=== PATIENT | female | born 1990 | race Caucasian/White ===

== ENCOUNTER 2019-02-07 22:59 | Inpatient (IN) | payer OTHER ==
[2019-02-07 23:06] VITALS: BMI 24.4
[2019-02-07] MEDS ORDERED: ACETAMINOPHEN 500 MG TABLET (FP) PO ONE (23:37)
--- NOTE | 2019-02-07 23:37 | PDOC ---
History of Present Illness - General Chief Complaint: Pain, Acute Stated Complaint: LEFT KNEE PAIN Time Seen by Provider: 02/07/19 23:28 - History of Present Illness Initial Comments: 02/07/19 23:34 CHIEF COMPLAINT: L knee pain HISTORY OF PRESENT ILLNESS: 28 yo F with no PMH presents to ED with left leg pain and swelling x 2 days . Patient reports the pain began two days ago but the swelling began today and she was no longer able to bend her knee or walk. Denies any fever, chills, nausea, vomiting, diarrhea. Denies any hx of STIs, denies any recent trauma or injury to the knee. Patient denies any recent skin injury including lacerations, abrasions, or any insect bites. Denies any outdoor activity including travel or hiking. No recent travel or sick contacts. PAST MEDICAL HISTORY: Denies past medical history FAMILY HISTORY: Denies SOCIAL HISTORY: Denies tobacco, alcohol, illicit drug use. SURGICAL HISTORY: Denies ALLERGIES: No known drug allergies REVIEW OF SYSTEMS General/Constitutional: Denies fever or chills. Denies weakness, weight change. HEENT: Denies change in vision. Denies ear pain or discharge. Denies sore throat. Cardiovascular: Denies chest pain or shortness of breath. Respiratory: Denies cough, wheezing, or hemoptysis. Gastrointestinal: Denies nausea, vomiting, diarrhea or constipation. Denies rectal bleeding. Genitourinary: Denies dysuria, frequency, or change in urination. Musculoskeletal: L knee pain and swelling x 2 days, worse today. Skin and breasts: Denies rash or easy bruising. Neurologic: Denies headache, vertigo, loss of consciousness, or loss of sensation. Psychiatric: Denies depression or anxiety. Endocrine: Denies increased thirst. Denies abnormal weight change. Hematologic/Lymphatic: Denies anemia, easy bleeding, or history of blood clots. Allergic/Immunologic: Denies hives or skin allergy. Denies latex allergy. PHYSICAL EXAM General Appearance: Well-appearing, appropriately dressed. No apparent distress , no intoxication. HEENT: EOMI, PERRLA, normal ENT inspection, normal voice, TMs normal, pharynx normal. No conjunctival pallor. No photophobia, scleral icterus. Neck: Supple. Trachea midline. No tenderness, rigidity, carotid bruit, stridor , lymphadenopathy, or thyromegaly. Respiratory/Chest: Lungs CTAB. No shortness of breath, chest tenderness, respiratory distress, accessory muscle use. No crackles, rales, rhonchi, stridor , wheezing, dullness Cardiovascular: RRR. S1, S2. No JVD, murmur, bradycardia, tachycardia. Vascular Pulses: Dorsalis-Pedis (R): 2+, Dorsalis-Pedis (L): 2+ Gastrointestinal/Abdominal: Normal bowel sounds. Abdomen soft, non-distended. No tenderness or rebound tenderness. No organomegaly, pulsatile mass, guarding , hernia, hepatomegaly, splenomegaly. Lymphatic: No adenopathy, tenderness. Musculoskeletal/Extremities: Swelling to superior anterior aspect of L knee with warmth and TTP. Markedly decreased flexion to L knee. Normal inspection. FROM of all extremities, normal capillary refill. Pelvis Stable. No CVA tenderness. No tenderness to extremities, pedal edema, swelling, erythema or deformity. Integumentary: Appropriate color, dry, warm. No cyanosis, erythema, jaundice or rash Neurologic: knife setter II-XII intact. Fully oriented, alert. Appropriate mood/affect. Motor strength 5/5. No appreciable EOM palsy, facial droop or sensory deficit. 02/08/19 00:29 Past History - Past Medical History Allergies/Adverse Reactions: Allergies Allergy/AdvReac Type Severity Reaction Status Date / Time No Known Allergies Allergy Verified 02/08/19 01:21 Home Medications: Ambulatory Orders Ondansetron [Zofran -] 4 mg PO TID PRN #21 tablet 11/29/15 Oxycodone HCl/Acetaminophen [Percocet 5-325 mg Tablet] 1 tab PO Q6H PRN #16 tablet MDD 4 tabs 11/29/15 Norethindrone 1 tab PO DAILY 02/08/19 Ibuprofen [Motrin -] 600 mg PO TID #21 tablet 02/09/19 COPD: No - Suicide/Smoking/Psychosocial Hx Smoking History: Never smoked Hx Alcohol Use: No Drug/Substance Use Hx: No Substance Use Type: None *Physical Exam - Vital Signs Last Vital Signs Temp Pulse Resp BP Pulse Ox 99.6 F 108 H 18 134/48 L 99 02/07/19 23:05 02/07/19 23:05 02/07/19 23:05 02/07/19 23:05 02/07/19 23:05 ED Treatment Course - LABORATORY CBC & Chemistry Diagram: 02/09/19 06:10 02/09/19 06:10 Medical Decision Making - Medical Decision Making 02/07/19 23:36 28 yo F with no PMH presents to ED with left leg pain and swelling x 2 days . -labs -knee x-ray Concern for septic joint. Verbal consent obtained for joint aspiration. Synovial fluid sample sent for cultures. Will obtain urine to test for Ct/GC. 02/08/19 02:51 Case discussed in detail with oncoming emergency provider including history, physical exam and ancillary studies. In brief, this patient is being seen in the ED for a chief complaint of: I have completed the initial assessment interview note and have ordered the following labs: synovial fluid, ct/gc Please call the PCP: Mary Grace Deal Plan for disposition as follows: pending *DC/Admit/Observation/Transfer Diagnosis at time of Disposition: Knee effusion, left, Infection of left knee - Discharge Dispostion Disposition: HOME Condition at time of disposition: Stable - Referrals - Patient Instructions - Post Discharge Activity
[2019-02-08] MEDS ORDERED: ACETAMINOPHEN 325 MG TABLET (FP) ONE
[2019-02-08 00:30] LABS: BASO % 0.7 % (0-2.0); EOS % 1.6 % (0-4.5); HEMATOCRIT 36.6 % (32.4-45.2); HEMOGLOBIN 11.7 GM/dL (10.7-15.3); LYMPH % 16.1 % (8-40); MCH 21.5 pg (25.7-33.7); MCHC 31.9 g/dl (32.0-36.0); MEAN CELL VOLUME 67.4 fl (80-96); MEAN PLT VOLUME 8.9 fl (7.5-11.1); MONO % 5.4 % (3.8-10.2); NEUT % 76.2 % (42.8-82.8); PLATELET COUNT 264 K/MM3 (134-434); RBC 5.43 M/mm3 (3.60-5.2); RDW 19.2 % (11.6-15.6); WHITE BLOOD COUNT 11.7 K/mm3 (4.0-10.0)
[2019-02-08 01:08] LABS: ALBUMIN 3.7 g/dl (3.4-5.0); BILIRUBIN,TOTAL 0.4 mg/dL (0.2-1); BLOOD UREA NITROGEN 9.6 mg/dL (7-18); CALCIUM 8.6 mg/dL (8.5-10.1); CREATININE 0.6 mg/dL (0.55-1.3); POTASSIUM 4.2 mmol/L (3.5-5.1); TOT PROT 7.5 g/dl (6.4-8.2)
[2019-02-08 01:45] LABS: INR 1.04 (0.83-1.09); PROTHROMBIN TIME (PATIENT) 12.3 SEC (9.7-13.0)
[2019-02-08 01:48] LABS: ACTIVATED PTT 30.9 SECONDS (25.2-36.5)
[2019-02-08] MEDS ORDERED: LIDOCAINE HCL 2% (20ML MULTI-DOSE VIAL) NR ONE (01:51)
[2019-02-08] MEDS ORDERED: LIDOCAINE HCL 2% (50ML VIAL) SQ ONE (01:51)
[2019-02-08 03:49] LABS: URINE APPEARANCE CLEAR; URINE BILIRUBIN NEGATIVE (NEGATIVE); URINE COLOR YELLOW; URINE GLUCOSE (UA) NEGATIVE (NEGATIVE); URINE KETONE NEGATIVE (NEGATIVE); URINE LEUK ESTERASE NEGATIVE (NEGATIVE); URINE NITRITE NEGATIVE (NEGATIVE); URINE PROTEIN NEGATIVE (NEGATIVE)
--- NOTE | 2019-02-08 04:28 | PDOC ---
*Physical Exam - Vital Signs Last Vital Signs Temp Pulse Resp BP Pulse Ox 99.6 F 108 H 18 134/48 L 99 02/07/19 23:05 02/07/19 23:05 02/07/19 23:05 02/07/19 23:05 02/07/19 23:05 - Physical Exam Comments: 02/08/19 04:21 Patient's care was endorsed to me by Isabella Guerra at the end of her shift. Patient has left knee pain for the past 2 days, worsening, 04/11, also swelling to the superior/anterior knee, and she is unable to walk or bear weight or bend the knee past 10 degrees. Never had this before, no c/f STI, no skin breaks recently. ED Treatment Course - LABORATORY CBC & Chemistry Diagram: 02/08/19 00:21 02/08/19 00:21 - ADDITIONAL ORDERS Additional order review: Laboratory Results 02/08/19 02/08/19 02/08/19 03:33 00:34 00:21 PT with INR 12.30 INR 1.04 PTT (Actin FS) 30.9 Sodium 140 Potassium 4.2 Chloride 108 H Carbon Dioxide 25 Anion Gap 7 L BUN 9.6 Creatinine 0.6 Est GFR (CKD-EPI)AfAm 142.76 Est GFR (CKD-EPI)NonAf 123.17 Random Glucose 102 Calcium 8.6 Total Bilirubin 0.4 AST 13 L ALT 17 Alkaline Phosphatase 72 Total Protein 7.5 Albumin 3.7 Urine Color Yellow Urine Appearance Clear Urine pH 6.0 Ur Specific [place] 1.026 Urine Protein Negative Urine Glucose (UA) Negative Urine Ketones Negative Urine Blood Negative Urine Nitrite Negative Urine Bilirubin Negative Urine Urobilinogen 1.0 Ur Leukocyte Esterase Negative 02/08/19 00:21 RBC 5.43 H MCV 67.4 L MCHC 31.9 L RDW 19.2 H MPV 8.9 Neutrophils % 76.2 Lymphocytes % 16.1 Monocytes % 5.4 Eosinophils % 1.6 Basophils % 0.7 - Medications Given in the ED: ED Medications Discontinued Medications Generic Name Dose Route Start Last Admin Trade Name Freq PRN Reason Stop Dose Admin Acetaminophen 1,000 mg 02/07/19 23:37 02/08/19 00:04 Tylenol - PO 02/07/19 23:38 1,000 mg ONCE ONE Administration Lidocaine HCl 10 mg 02/08/19 01:51 02/08/19 01:56 Xylocaine 2% SQ 02/08/19 01:52 10 mg ONCE ONE Administration Oxycodone/Acetaminophen 1 combo 02/08/19 02:37 02/08/19 02:58 Percocet 5/325 - PO 02/08/19 02:38 1 combo ONCE ONE Administration Medical Decision Making - Medical Decision Making 02/08/19 04:28 The patient is unable to walk, bear weight, or bend her knee despite analgesics. IV vancomycin and ceftriaxone have been ordered. Blood cultures added on to be drawn before IV antibiotics given. The Pt is unsafe for discharge at this time. They require further hospital observation, workup, and treatment. Microblog sent to [facility] for admission. Blank Decision to Admit order is placed per ED protocol. 02/08/19 05:04 I spoke with Ciera Rios, on with [facility]. Blank Decision to Admit order corrected with Dr. Cabral's name. *DC/Admit/Observation/Transfer Diagnosis at time of Disposition: Knee effusion, left, Infection of left knee - Discharge Dispostion Condition at time of disposition: Guarded Decision to Admit order: Yes - Referrals Referrals: Mary Grace Deal MD [Primary Care Provider] - - Patient Instructions - Post Discharge Activity
[2019-02-08] MEDS ORDERED: CEFTRIAXONE 1,000 MG in DEXTROSE 5%-WATER - 50 ML IVPB ONE (05:06)
[2019-02-08] MEDS ORDERED: VANCOMYCIN 1 GM in D5W (PRE-DOCKED) 1,000 MG/250 ML IVPB ONE (05:06)
[2019-02-08] MEDS ORDERED: VANCOMYCIN 1 GRAM (PRE-DOCKED) 1,000 MG/250 ML BAG IVPB ONE (05:08)
[2019-02-08] MEDS ORDERED: CEFTRIAXONE 1 GM/50 ML BAG ONE (05:10)
[2019-02-08] MEDS ORDERED: ACETAMINOPHEN 325 MG TABLET (FP) PO PRN (05:44)
--- NOTE | 2019-02-08 05:52 | HP ---
CHIEF COMPLAINT: L knee pain PCP: HISTORY OF PRESENT ILLNESS: Patient is a 28 y/o female with no past medical history who presents for knee pain. This pain began on Monday. The pain is worse with walking. She has not been taking any pain medication to help. She has never had anything like this before. Reports there has been no trauma. patient is sexually active with the same person for 10 years and has never been tested for STD's. Patient does not go hiking and denies recent bug bites or rashes. Patient stays at home with her three children but denies chasing them or running into things. Denies fevers, chills, nausea, vomtiing, headache, or chest pain. ER course was notable for: (1) tapped the knee (2) Oxy once (3) Recent Travel: denies PAST MEDICAL HISTORY: denies PAST SURGICAL HISTORY: denies Social History: Smoking: denies Alcohol: denies Drugs: denies Family History: family hx denies gout Allergies No Known Allergies Allergy (Verified 02/08/19 01:21) HOME MEDICATIONS: Home Medications Medication Instructions Recorded Ondansetron [Zofran -] 4 mg PO TID PRN #21 tablet 11/29/15 Oxycodone HCl/Acetaminophen 1 tab PO Q6H PRN #16 tablet MDD 4 11/29/15 [Percocet 5-325 mg Tablet] tabs REVIEW OF SYSTEMS CONSTITUTIONAL: Absent: fever, chills, diaphoresis, generalized weakness, malaise, loss of appetite, weight change HEENT: Absent: rhinorrhea, nasal congestion, throat pain, throat swelling, difficulty swallowing, mouth swelling, ear pain, eye pain, visual changes CARDIOVASCULAR: Absent: chest pain, syncope, palpitations, irregular heart rate, lightheadedness , peripheral edema RESPIRATORY: Absent: cough, shortness of breath, dyspnea with exertion, orthopnea, wheezing, stridor, hemoptysis GASTROINTESTINAL: Absent: abdominal pain, abdominal distension, nausea, vomiting, diarrhea, constipation, melena, hematochezia GENITOURINARY: Absent: dysuria, frequency, urgency, hesitancy, hematuria, flank pain, genital pain MUSCULOSKELETAL: knee pain Absent: myalgia, arthralgia, joint swelling, back pain, neck pain SKIN: Absent: rash, itching, pallor HEMATOLOGIC/IMMUNOLOGIC: Absent: easy bleeding, easy bruising, lymphadenopathy, frequent infections ENDOCRINE: Absent: unexplained weight gain, unexplained weight loss, heat intolerance, cold intolerance NEUROLOGIC: Absent: headache, focal weakness or paresthesias, dizziness, unsteady gait, seizure, mental status changes, bladder or bowel incontinence PSYCHIATRIC: Absent: anxiety, depression, suicidal or homicidal ideation, hallucinations. PHYSICAL EXAMINATION Vital Signs - 24 hr 02/07/19 02/08/19 02/08/19 23:05 01:00 05:32 Temperature 99.6 F 98.9 F Pulse Rate 108 H Pulse Rate [ 89 Left Radial] Respiratory 18 20 Rate Blood Pressure 134/48 L Blood Pressure 128/76 [Left Arm] O2 Sat by Pulse 99 99 99 Oximetry (%) GENERAL: Awake, alert, and fully oriented, in no acute distress. HEAD: Normal with no signs of trauma. EYES: Pupils equal, round and reactive to light, extraocular movements intact, EARS, NOSE, THROAT: Moist mucous membranes. LUNGS: Breath sounds equal, clear to auscultation bilaterally. No wheezes, and no crackles. No accessory muscle use. HEART: Regular rate and rhythm, normal S1 and S2 without murmur, rub or gallop. ABDOMEN: Soft, nontender, not distended, normoactive bowel sounds, no guarding, no rebound, no masses. MUSCULOSKELETAL: L knee, tender to palpation, mild erythema, diffuse edema , popliteal pulse 2+ LOWER EXTREMITIES: 2+ pulses, warm, well-perfused. No calf tenderness. No peripheral edema. SKIN: Warm, dry, normal turgor, no rashes or lesions noted, normal capillary refill. CBC, BMP 02/08/19 00:21 02/08/19 00:21 ASSESSMENT/PLAN: Patient is a 28 y/o female with not past medical history who is admitted for L knee pain. #L knee pain - r/o infectious vs traumatic - ED tapped the knee and sent off fluid, for cultures - tylenol for pain, pain decreased with medication - no sign of compartment syndrome, pulses intact, able to move toes - can consider Ortho consult in AM if swelling worsens, not indicated at this time - ESR, CRP, STD pannel pending - Ceftriaxone and Vancomycin, continue abx if suspicious for infectious source #DVT ppx - low risk, continue ambulation #FEN - regular diet Dispo: monitor on med surg Visit type - Emergency Visit Emergency Visit: Yes ED Registration Date: 02/08/19 Care time: The patient presented to the Emergency Department on the above date and was hospitalized for further evaluation of their emergent condition. - New Patient This patient is new to me today: Yes Date on this admission: 02/12/19 - Critical Care Critical Care patient: No ATTENDING PHYSICIAN STATEMENT I saw and evaluated the patient. I reviewed the resident's note and discussed the case with the resident. I agree with the resident's findings and plan as documented. SUBJECTIVE: OBJECTIVE: ASSESSMENT AND PLAN:
[2019-02-08 07:19] LABS: ANISOCYTOSIS 1+
[2019-02-08 07:27] LABS: BASO % 0.3 % (0-2.0); EOS % 2.1 % (0-4.5); HEMATOCRIT 33.9 % (32.4-45.2); HEMOGLOBIN 10.8 GM/dL (10.7-15.3); LYMPH % 19.6 % (8-40); MCH 21.4 pg (25.7-33.7); MCHC 31.9 g/dl (32.0-36.0); MEAN CELL VOLUME 67.1 fl (80-96); MEAN PLT VOLUME 9.5 fl (7.5-11.1); MONO % 5.7 % (3.8-10.2); NEUT % 72.3 % (42.8-82.8); PLATELET COUNT 261 K/MM3 (134-434); RBC 5.06 M/mm3 (3.60-5.2); RDW 18.7 % (11.6-15.6); WHITE BLOOD COUNT 11.6 K/mm3 (4.0-10.0)
[2019-02-08 07:33] LABS: ALBUMIN 3.5 g/dl (3.4-5.0); BILIRUBIN,TOTAL 0.3 mg/dL (0.2-1); BLOOD UREA NITROGEN 9.2 mg/dL (7-18); CALCIUM 8.3 mg/dL (8.5-10.1); CREATININE 0.5 mg/dL (0.55-1.3); POTASSIUM 4.2 mmol/L (3.5-5.1); TOT PROT 7.3 g/dl (6.4-8.2)
--- NOTE | 2019-02-08 07:43 | PN ---
Teaching Attending Note Name of Resident: Chava Bone ATTENDING PHYSICIAN STATEMENT I saw and evaluated the patient. I reviewed the resident's note and discussed the case with the resident. I agree with the resident's findings and plan as documented. SUBJECTIVE: Left knee pain OBJECTIVE: Vital Signs Temperature 98.9 F 02/08/19 05:32 Pulse Rate 89 02/08/19 05:32 Respiratory Rate 20 02/08/19 05:32 Blood Pressure 128/76 02/08/19 05:32 O2 Sat by Pulse Oximetry (%) 99 02/08/19 05:32 HEENT: Mm moist, no anemia, PERRLA EOMI NECK: No JVd No Bruit CHEST: CTA B/L CVS: S1S2 R no m/g/r ABD: No distention, non tender EXT: Left knee pain and tenderness fullness in suprpattelar area more localised at suprpatellar area and around patella laterally DEVELOPMENTAL THERAPIST: AOX3 non focal CBC, BMP 02/08/19 06:23 02/08/19 06:23 ASSESSMENT AND PLAN:28 y/o female with no past medical history who presents for knee pain. This pain began on Monday. The pain is worse with walking. Problem List - Problems (1) Knee effusion, left Assessment/Plan: Patient present with Left knee pain swelling nad tenderness no fever no TITLE EXAMINER symptoms no high risk behaviour urinne GC is pending CRP 1.6, last night needle aspiration failed, X ray no obvious effusion, on empiric treatment for septic arthritis F/U pending w/u for septic arthritis/suprpatellar bursiis , Left knee ultrasound if fluid either IR or ortho consult for diagnostic tapm cold compresses, add motrin and PRN percocet F/U Serial ESR and CRP. Code(s): M25.462 - EFFUSION, LEFT KNEE
[2019-02-08 10:39] LABS: SYNOVIAL FLUID SOURCE LEFT KNEE
--- NOTE | 2019-02-08 11:47 | PN ---
Physical Exam: SUBJECTIVE: Patient seen and examined at the bedside this AM. No acute events overnight. OBJECTIVE: Vital Signs Period Temp Pulse Resp BP Sys/Adams Pulse Ox Last 24 Hr 98.0 F-99.6 F 88-108 16-20 128-137/48-76 99-99 GENERAL: The patient is awake, alert, and fully oriented, in no acute distress. HEAD: Normal with no signs of trauma. EYES: PERRL, extraocular movements intact, sclera anicteric, conjunctiva clear. No ptosis. ENT: Ears normal, nares patent, moist mucous membranes. NECK: Trachea midline, full range of motion, supple. LUNGS: Breath sounds equal, clear to auscultation bilaterally, no wheezes, no crackles, no accessory muscle use. HEART: Regular rate and rhythm, S1, S2 without murmur, rub or gallop. ABDOMEN: Soft, slightly tender 5/10 pain in mid to lower epigastrium, nondistended, normoactive bowel sounds, no guarding, no rebound. EXTREMITIES: warm, well-perfused, no edema, Left knee wrapped ttp and no popliteal cyst appreciated, no crepitus, slight effusion present. NEUROLOGICAL: Cranial nerves II through XII grossly intact. Normal speech, gait not observed. PSYCH: Normal mood, normal affect. SKIN: Warm, dry, no rashes or lesions noted Laboratory Results - last 24 hr 02/08/19 02/08/19 02/08/19 00:21 00:21 00:34 WBC 11.7 H RBC 5.43 H Hgb 11.7 Hct 36.6 MCV 67.4 L MCH 21.5 L MCHC 31.9 L RDW 19.2 H Plt Count 264 MPV 8.9 Absolute Neuts (auto) 8.9 H Neutrophils % 76.2 Lymphocytes % 16.1 Monocytes % 5.4 Eosinophils % 1.6 Basophils % 0.7 Nucleated RBC % 0 Hypochromia 2+ Anisocytosis 1+ Microcytosis 1+ ESR PT with INR 12.30 INR 1.04 PTT (Actin FS) 30.9 Sodium 140 Potassium 4.2 Chloride 108 H Carbon Dioxide 25 Anion Gap 7 L BUN 9.6 Creatinine 0.6 Est GFR (CKD-EPI)AfAm 142.76 Est GFR (CKD-EPI)NonAf 123.17 Random Glucose 102 Calcium 8.6 Total Bilirubin 0.4 AST 13 L ALT 17 Alkaline Phosphatase 72 C-Reactive Protein Total Protein 7.5 Albumin 3.7 Urine Color Urine Appearance Urine pH Ur Specific [place] Urine Protein Urine Glucose (UA) Urine Ketones Urine Blood Urine Nitrite Urine Bilirubin Urine Urobilinogen Ur Leukocyte Esterase Synovial Source Synovial Crystals Rheumatoid Factor 02/08/19 02/08/19 02/08/19 02:35 02:35 03:33 WBC RBC Hgb Hct MCV MCH MCHC RDW Plt Count MPV Absolute Neuts (auto) Neutrophils % Lymphocytes % Monocytes % Eosinophils % Basophils % Nucleated RBC % Hypochromia Anisocytosis Microcytosis ESR PT with INR INR PTT (Actin FS) Sodium Potassium Chloride Carbon Dioxide Anion Gap BUN Creatinine Est GFR (CKD-EPI)AfAm Est GFR (CKD-EPI)NonAf Random Glucose Calcium Total Bilirubin AST ALT Alkaline Phosphatase C-Reactive Protein Total Protein Albumin Urine Color Yellow Urine Appearance Clear Urine pH 6.0 Ur Specific [place] 1.026 Urine Protein Negative Urine Glucose (UA) Negative Urine Ketones Negative Urine Blood Negative Urine Nitrite Negative Urine Bilirubin Negative Urine Urobilinogen 1.0 Ur Leukocyte Esterase Negative Synovial Source Left knee Synovial Crystals Negative Rheumatoid Factor 02/08/19 02/08/19 02/08/19 04:50 05:15 06:23 WBC 11.6 H RBC 5.06 Hgb 10.8 Hct 33.9 MCV 67.1 L MCH 21.4 L MCHC 31.9 L RDW 18.7 H Plt Count 261 MPV 9.5 Absolute Neuts (auto) 8.4 H Neutrophils % 72.3 Lymphocytes % 19.6 D Monocytes % 5.7 Eosinophils % 2.1 Basophils % 0.3 Nucleated RBC % 0 Hypochromia Anisocytosis Microcytosis ESR 12 PT with INR INR PTT (Actin FS) Sodium Potassium Chloride Carbon Dioxide Anion Gap BUN Creatinine Est GFR (CKD-EPI)AfAm Est GFR (CKD-EPI)NonAf Random Glucose Calcium Total Bilirubin AST ALT Alkaline Phosphatase C-Reactive Protein 1.6 H Total Protein Albumin Urine Color Urine Appearance Urine pH Ur Specific [place] Urine Protein Urine Glucose (UA) Urine Ketones Urine Blood Urine Nitrite Urine Bilirubin Urine Urobilinogen Ur Leukocyte Esterase Synovial Source Synovial Crystals Rheumatoid Factor 02/08/19 02/08/19 06:23 07:30 WBC RBC Hgb Hct MCV MCH MCHC RDW Plt Count MPV Absolute Neuts (auto) Neutrophils % Lymphocytes % Monocytes % Eosinophils % Basophils % Nucleated RBC % Hypochromia Anisocytosis Microcytosis ESR PT with INR INR PTT (Actin FS) Sodium 138 Potassium 4.2 Chloride 107 Carbon Dioxide 23 Anion Gap 8 BUN 9.2 Creatinine 0.5 L Est GFR (CKD-EPI)AfAm 151.59 Est GFR (CKD-EPI)NonAf 130.79 Random Glucose 102 Calcium 8.3 L Total Bilirubin 0.3 AST 11 L ALT 16 Alkaline Phosphatase 71 C-Reactive Protein Total Protein 7.3 Albumin 3.5 Urine Color Urine Appearance Urine pH Ur Specific [place] Urine Protein Urine Glucose (UA) Urine Ketones Urine Blood Urine Nitrite Urine Bilirubin Urine Urobilinogen Ur Leukocyte Esterase Synovial Source Synovial Crystals Rheumatoid Factor < 10.0 Active Medications Generic Name Dose Route Start Last Admin Trade Name Freq PRN Reason Stop Dose Admin Acetaminophen 650 mg 02/08/19 05:44 02/08/19 10:17 Tylenol - PO 650 mg Q6H PRN Administration PAIN ASSESSMENT/PLAN: Patient is a 28 y/o female with not past medical history who is admitted for L knee pain. #L knee pain - no sign of a septic joint at this moment, full ROM, not swollen or hot to touch, able to move toes - Dr. Deleon: Synovial fluid shows prepatellar fluid likely 2/2 prepatellar bursitis. - Dr. Lazo consulted: - PT eval - wbat, crutches - fluid negative for infection, pt can be d/c'd and f/u in ortho office next week - may need MRI but can do as outpt - ESR normal CRP, STD panel pending. - no abx at this time NSAIDS, tylenol ID consulted (Dr. Lindo) #DVT ppx - low risk, encourage ambulation #FEN - regular diet Dispo: monitor on med surg Visit type - Emergency Visit Emergency Visit: Yes ED Registration Date: 02/08/19 Care time: The patient presented to the Emergency Department on the above date and was hospitalized for further evaluation of their emergent condition. - New Patient This patient is new to me today: No - Critical Care Critical Care patient: No - Discharge Referral Referred to [facility] Med P.C.: No ATTENDING PHYSICIAN STATEMENT I saw and evaluated the patient. I reviewed the resident's note and discussed the case with the resident. I agree with the resident's findings and plan as documented. SUBJECTIVE: OBJECTIVE: ASSESSMENT AND PLAN:
[2019-02-08 13:30] LABS: SYNOVIAL FLUID RBC 4298300 /mm3
[2019-02-08] MEDS ORDERED: LIDOCAINE HCL 1%, 10 MG/ML (20ML VIAL) ONE (14:58)
--- NOTE | 2019-02-08 15:29 | CON.ORTH ---
Consult Reason for Consultation:: left knee pain, swelling - Past Medical History ...LMP: 01/24/19 ...LMP Comment: 01/24/2019 ...: No - Alcohol/Substance Use Hx Alcohol Use: No - Smoking History Smoking history: Never smoked Home Medications - Allergies Allergies/Adverse Reactions: Allergies Allergy/AdvReac Type Severity Reaction Status Date / Time No Known Allergies Allergy Verified 02/08/19 01:21 - Home Medications Home Medications: Ambulatory Orders Ondansetron [Zofran -] 4 mg PO TID PRN #21 tablet 11/29/15 Oxycodone HCl/Acetaminophen [Percocet 5-325 mg Tablet] 1 tab PO Q6H PRN #16 tablet MDD 4 tabs 11/29/15 Norethindrone 1 tab PO DAILY 02/08/19 Physical Exam for Ortho Vital Signs: Vital Signs Temperature 98.9 F 02/08/19 14:48 Pulse Rate 85 02/08/19 14:48 Respiratory Rate 18 02/08/19 14:48 Blood Pressure 117/78 02/08/19 14:48 O2 Sat by Pulse Oximetry (%) 99 02/08/19 08:39 Labs: CBC, BMP 02/08/19 06:23 02/08/19 06:23 INR, PTT INR 1.04 (0.83-1.09) 02/08/19 00:34 - Lower Extremity Knee: Yes: Left, Limited ROM, Pain, Swelling, Tenderness, Other (2+ effusion, no erythema, no ecchymosis. + ttp diffusely, rom 0-40, calf soft, nt, nvi) Imaging - Results X-ray: Report Reviewed, Image Reviewed Assessment/Plan 28 yo female with no PMHx presented to ED for pain and swelling in left knee for the past 3 days. Pt denies any injury/trauma. Denies and tick bites, being wooded areas, or STDs. Had knee aspirated in ED with only minimal fluid. Denies any fever, chills, rigors, N/V. a/p left knee effusion Consent obtained, under sterile technique the left knee was aspirated, 30 cc of blood tinged fluid was aspirated, procedure tolerated well, sterile pressure dressing applied Synovial fluid sent for cell count, C+S, cultures, lyme PT eval wbat, crutches If fluid neg for infection, then pt can be d/c'd and f/u in office next week may need MRI but can do as outpt d/w Dr. Lazo will follow
[2019-02-08] MEDS: IBUPROFEN 600 MG TABLET (FP) PO PRN (16:02)
[2019-02-08 22:59] LABS: SYNOVIAL FLUID LYMPHOCYTES 10 %; SYNOVIAL FLUID MACROPHAGES 10 %; SYNOVIAL FLUID MONOCYTES 10 %; SYNOVIAL FLUID NEUTROPHILS 70 %
[2019-02-09 07:10] LABS: BASO % 0.4 % (0-2.0); EOS % 2.5 % (0-4.5); HEMATOCRIT 33.6 % (32.4-45.2); HEMOGLOBIN 11.1 GM/dL (10.7-15.3); LYMPH % 24.9 % (8-40); MCH 22.2 pg (25.7-33.7); MEAN CELL VOLUME 67.1 fl (80-96); MONO % 6.2 % (3.8-10.2); PLATELET COUNT 227 K/MM3 (134-434); RDW 18.8 % (11.6-15.6); WHITE BLOOD COUNT 8.3 K/mm3 (4.0-10.0)
[2019-02-09 07:41] LABS: ALBUMIN 3.2 g/dl (3.4-5.0); BILIRUBIN,TOTAL 0.3 mg/dL (0.2-1); BLOOD UREA NITROGEN 10.1 mg/dL (7-18); CALCIUM 8.4 mg/dL (8.5-10.1); CREATININE 0.6 mg/dL (0.55-1.3); POTASSIUM 4.1 mmol/L (3.5-5.1)
[2019-02-09] MEDS: IBUPROFEN 600 MG TABLET (FP) PO PRN (08:46)
--- NOTE | 2019-02-09 12:40 | PN ---
<Ferny Bone - Last Filed: 02/09/19 12:40> Physical Exam: SUBJECTIVE: Patient seen and examined at the bedside this AM. No acute events overnight. OBJECTIVE: Vital Signs Period Temp Pulse Resp BP Sys/Adams Pulse Ox Last 24 Hr 98.4 F-99.5 F 84-92 18-18 106-123/57-78 99 GENERAL: The patient is awake, alert, and fully oriented, in no acute distress. HEAD: Normal with no signs of trauma. EYES: PERRL, extraocular movements grossly intact, sclera anicteric, conjunctiva clear. No ptosis. ENT: Ears normal, nares patent, oropharynx clear without exudates, moist mucous membranes. NECK: supple. LUNGS: Breath sounds equal, clear to auscultation bilaterally, no wheezes, no crackles, no accessory muscle use. HEART: Regular rate and rhythm, S1, S2 without murmur, rub or gallop. ABDOMEN: Soft, no longer tender anymore, nondistended, normoactive bowel sounds , no guarding, no rebound. EXTREMITIES: 2+ pulses, warm, well-perfused, no edema, left knee wrapped up no signs of paresthesia, or compartment syndrome, good popliteal pulse appreciated , impaired ROM due to pain, difficulty ambulating cant do so without cane or crutches. NEUROLOGICAL: Cranial nerves II through XII grossly intact. Normal speech, gait not observed. PSYCH: Normal mood, normal affect. SKIN: Warm, dry, no rashes or lesions noted Laboratory Results - last 24 hr 02/08/19 02/09/19 02/09/19 02:35 06:10 06:10 WBC 8.3 RBC 5.00 Hgb 11.1 Hct 33.6 MCV 67.1 L MCH 22.2 L MCHC 33.0 RDW 18.8 H Plt Count 227 MPV 9.0 Absolute Neuts (auto) 5.5 Neutrophils % 66.0 Lymphocytes % 24.9 D Monocytes % 6.2 Eosinophils % 2.5 Basophils % 0.4 Nucleated RBC % 0 Sodium 140 Potassium 4.1 Chloride 108 H Carbon Dioxide 24 Anion Gap 8 BUN 10.1 Creatinine 0.6 Est GFR (CKD-EPI)AfAm 142.76 Est GFR (CKD-EPI)NonAf 123.17 Random Glucose 78 Calcium 8.4 L Total Bilirubin 0.3 AST 11 L ALT 16 Alkaline Phosphatase 68 C-Reactive Protein Total Protein 7.0 Albumin 3.2 L Synovial WBC 5700 Synovial RBC 2882398 Synovial Neutrophils 70 Synovial Lymphocytes 10 Synovial Monocytes 10 Synovial Histocytes No Result Required. Synovial Plasma Cells No Result Required. Synovial LE Cells No Result Required. Synovial Macrophages 10 Synovial Other Cells No Result Required. Synovial Diff Comment No Result Required. 02/09/19 06:10 WBC RBC Hgb Hct MCV MCH MCHC RDW Plt Count MPV Absolute Neuts (auto) Neutrophils % Lymphocytes % Monocytes % Eosinophils % Basophils % Nucleated RBC % Sodium Potassium Chloride Carbon Dioxide Anion Gap BUN Creatinine Est GFR (CKD-EPI)AfAm Est GFR (CKD-EPI)NonAf Random Glucose Calcium Total Bilirubin AST ALT Alkaline Phosphatase C-Reactive Protein 6.1 H Total Protein Albumin Synovial WBC Synovial RBC Synovial Neutrophils Synovial Lymphocytes Synovial Monocytes Synovial Histocytes Synovial Plasma Cells Synovial LE Cells Synovial Macrophages Synovial Other Cells Synovial Diff Comment Active Medications Generic Name Dose Route Start Last Admin Trade Name Freq PRN Reason Stop Dose Admin Acetaminophen 650 mg 02/08/19 05:44 02/08/19 10:17 Tylenol - PO 650 mg Q6H PRN Administration PAIN Ibuprofen 600 mg 02/08/19 12:23 02/09/19 08:46 Motrin - PO 600 mg Q8H PRN Administration PAIN LEVEL 1-5 ASSESSMENT/PLAN: Patient is a 28 y/o female with not past medical history who is admitted for L knee pain. #L knee pain - no sign of a septic joint at this moment, full ROM, not swollen or hot to touch, able to move toes - Dr. Deleon: Synovial fluid shows prepatellar fluid likely 2/2 prepatellar bursitis. - Dr. Lazo consulted: PT eval, pt will need crutches upon d/c, difficulty ambulating on that side. - pending fluid results being negative for infection, pt can be d/c'd and f/u in ortho office next week - may need MRI but can do as outpt - ESR normal CRP, STD panel pending. - no abx at this time 600 TID motrin q6h PRN for pain relief with food. ID consulted (Dr. Lindo) awaiting recs #DVT ppx - low risk, encourage ambulation #FEN - regular diet Dispo: monitor on med surg Visit type - Emergency Visit Emergency Visit: Yes ED Registration Date: 02/08/19 Care time: The patient presented to the Emergency Department on the above date and was hospitalized for further evaluation of their emergent condition. - New Patient This patient is new to me today: No - Critical Care Critical Care patient: No - Discharge Referral Referred to [facility] Med P.C.: No ATTENDING PHYSICIAN STATEMENT I saw and evaluated the patient. I reviewed the resident's note and discussed the case with the resident. I agree with the resident's findings and plan as documented. SUBJECTIVE: OBJECTIVE: ASSESSMENT AND PLAN: <Chava Garrison - Last Filed: 02/09/19 16:31> Physical Exam: SUBJECTIVE: Patient seen and examined OBJECTIVE: Vital Signs Period Temp Pulse Resp BP Sys/Adams Pulse Ox Last 24 Hr 97.8 F-99.5 F 84-92 18-18 106-123/57-78 99 GENERAL: The patient is awake, alert, and fully oriented, in no acute distress. HEAD: Normal with no signs of trauma. EYES: PERRL, extraocular movements intact, sclera anicteric, conjunctiva clear. No ptosis. ENT: Ears normal, nares patent, oropharynx clear without exudates, moist mucous membranes. NECK: Trachea midline, full range of motion, supple. LUNGS: Breath sounds equal, clear to auscultation bilaterally, no wheezes, no crackles, no accessory muscle use. HEART: Regular rate and rhythm, S1, S2 without murmur, rub or gallop. ABDOMEN: Soft, nontender, nondistended, normoactive bowel sounds, no guarding, no rebound, no hepatosplenomegaly, no masses. EXTREMITIES: 2+ pulses, warm, well-perfused, no edema. NEUROLOGICAL: Cranial nerves II through XII grossly intact. Normal speech, gait not observed. PSYCH: Normal mood, normal affect. SKIN: Warm, dry, normal turgor, no rashes or lesions noted Laboratory Results - last 24 hr 02/08/19 02/08/19 02/09/19 02:35 15:21 06:10 WBC 8.3 RBC 5.00 Hgb 11.1 Hct 33.6 MCV 67.1 L MCH 22.2 L MCHC 33.0 RDW 18.8 H Plt Count 227 MPV 9.0 Absolute Neuts (auto) 5.5 Neutrophils % 66.0 Lymphocytes % 24.9 D Monocytes % 6.2 Eosinophils % 2.5 Basophils % 0.4 Nucleated RBC % 0 Sodium Potassium Chloride Carbon Dioxide Anion Gap BUN Creatinine Est GFR (CKD-EPI)AfAm Est GFR (CKD-EPI)NonAf Random Glucose Calcium Total Bilirubin AST ALT Alkaline Phosphatase C-Reactive Protein Total Protein Albumin Synovial Source Synovial Synovial WBC 2221 Synovial RBC 1831 Synovial Neutrophils 70 Synovial Lymphocytes 10 Synovial Monocytes 10 Synovial Histocytes No Result Required. Synovial Plasma Cells No Result Required. Synovial LE Cells No Result Required. Synovial Macrophages 10 Synovial Other Cells No Result Required. Synovial Diff Comment No Result Required. 02/09/19 02/09/19 06:10 06:10 WBC RBC Hgb Hct MCV MCH MCHC RDW Plt Count MPV Absolute Neuts (auto) Neutrophils % Lymphocytes % Monocytes % Eosinophils % Basophils % Nucleated RBC % Sodium 140 Potassium 4.1 Chloride 108 H Carbon Dioxide 24 Anion Gap 8 BUN 10.1 Creatinine 0.6 Est GFR (CKD-EPI)AfAm 142.76 Est GFR (CKD-EPI)NonAf 123.17 Random Glucose 78 Calcium 8.4 L Total Bilirubin 0.3 AST 11 L ALT 16 Alkaline Phosphatase 68 C-Reactive Protein 6.1 H Total Protein 7.0 Albumin 3.2 L Synovial Source Synovial WBC Synovial RBC Synovial Neutrophils Synovial Lymphocytes Synovial Monocytes Synovial Histocytes Synovial Plasma Cells Synovial LE Cells Synovial Macrophages Synovial Other Cells Synovial Diff Comment ASSESSMENT/PLAN: ATTENDING PHYSICIAN STATEMENT See teaching attending note
--- NOTE | 2019-02-09 13:11 | PN ---
Progress Note (short form) - Note Progress Note: Ortho Pt seen and examined s/p left knee aspiration- feeling much better Selected Entries 02/09/19 08:48 Temperature 99.5 F Pulse Rate 84 Respiratory 18 Rate Blood Pressure 113/69 Laboratory Tests 02/08/19 02/08/19 02/08/19 02:35 02:35 03:33 WBC Hgb Hct Plt Count Synovial Source Left knee Synovial WBC 5700 Synovial Neutrophils 70 Synovial Crystals Negative C. trachomatis (JAMISON) Pending N. gonorrhoeae (JAMISON) Pending 02/09/19 06:10 WBC 8.3 Hgb 11.1 Hct 33.6 Plt Count 227 Synovial Source Synovial WBC Synovial Neutrophils Synovial Crystals C. trachomatis (JAMISON) N. gonorrhoeae (JAMISON) decr swelling, decr pain, rom 0-100, calf soft, nt nvi a/p- left knee effusion, prepatella bursitis Aspirate neg to date Pt is feeling much better ok to d/c from ortho pov wbat, crutches if needed anti-inflammatory meds f/u in the office in 7-10 days d/w Dr. Lazo
--- NOTE | 2019-02-09 13:41 | PN ---
Teaching Attending Note Name of Resident: Ferny Bone ATTENDING PHYSICIAN STATEMENT I saw and evaluated the patient. I reviewed the resident's note and discussed the case with the resident. I agree with the resident's findings and plan as documented. SUBJECTIVE: Pt feeling improved. Review of synovial fluid reveals hemorrhagic fluid, no obvious infectious or crystal arthropathy. Pt able to ambulate though with some limp OBJECTIVE: Vital Signs Temperature 99.5 F 02/09/19 08:48 Pulse Rate 84 02/09/19 08:48 Respiratory Rate 18 02/09/19 08:48 Blood Pressure 113/69 02/09/19 08:48 O2 Sat by Pulse Oximetry (%) 99 02/08/19 21:00 GEN: well appearing young woman in no distress, AAox3 HEENT: EOMI, MMM, no scleral pallor or icterus NECK: no JVD, no cervical LAD CVS: NRRR, S1 &S2 nrml, no murmurs, rubs, gallops RESP: CTA b/l no wheezing, rales, rhonchi ABD: Soft, NT, ND, Normoactive EXT: warm, well perfused, no LE edema, L knee in wrap post tap with range of motion Neuro: pt ambulates w/ limp, no numbness or tingling on LEs ASSESSMENT AND PLAN: Prepatellar bursitis w/ effusion - pt with apparent hemorrhagic effusion s/p drain by IR not rapidly accumulating w/ adequate pain control, pt able to ambulate albeit w/limp, per Orthopedist is ok to be discharged home w/ crutches for gait assistance and outpt f/up with Dr. Lazo as per ortho note/recommendation - request urgent PT eval to help facilitate fitting for crutches to allow for home discharge today - pt encouraged to mobilize as able w/ support, continue use of knee wrap to reduce swelling - pt to use PRN ibuprofen 600mg q8hrs w/ meals upon discharge
[2019-02-09 14:23] VITALS: BP 113/62; PULSE 88; TEMP 97.8
[2019-02-09 14:26] LABS: SYNOVIAL FLUID SOURCE SYNOVIAL
[2019-02-09 14:27] LABS: SYNOVIAL FLUID RBC 1831 /mm3
--- NOTE | 2019-02-09 17:00 | DS ---
Physical Exam: SUBJECTIVE: Patient seen and examined at the bedside this AM. No acute events overnight. OBJECTIVE: Vital Signs Period Temp Pulse Resp BP Sys/Adams Pulse Ox Last 24 Hr 97.8 F-99.5 F 84-92 18-18 106-123/57-78 99 PHYSICAL EXAM GENERAL: The patient is awake, alert, and fully oriented, in no acute distress. HEAD: Normal with no signs of trauma. NECK: supple. LUNGS: Breath sounds equal, clear to auscultation bilaterally, no wheezes, no crackles, no accessory muscle use. HEART: Regular rate and rhythm, S1, S2 without murmur, rub or gallop. ABDOMEN: Soft, nontender, nondistended, normoactive bowel sounds, no guarding, no rebound. EXTREMITIES: 2+ pulses, warm, well-perfused, no edema. left knee was wrapped, no signs of compartment syndrome, pain on ROM. NEUROLOGICAL: Cranial nerves II through XII grossly intact. Normal speech, gait not observed. PSYCH: Normal mood, normal affect. SKIN: Warm, dry, no rashes or lesions noted. LABS Laboratory Results - last 24 hr 02/08/19 02/08/19 02/09/19 02:35 15:21 06:10 WBC 8.3 RBC 5.00 Hgb 11.1 Hct 33.6 MCV 67.1 L MCH 22.2 L MCHC 33.0 RDW 18.8 H Plt Count 227 MPV 9.0 Absolute Neuts (auto) 5.5 Neutrophils % 66.0 Lymphocytes % 24.9 D Monocytes % 6.2 Eosinophils % 2.5 Basophils % 0.4 Nucleated RBC % 0 Sodium Potassium Chloride Carbon Dioxide Anion Gap BUN Creatinine Est GFR (CKD-EPI)AfAm Est GFR (CKD-EPI)NonAf Random Glucose Calcium Total Bilirubin AST ALT Alkaline Phosphatase C-Reactive Protein Total Protein Albumin Synovial Source Synovial Synovial WBC 2221 Synovial RBC 1831 Synovial Neutrophils 70 Synovial Lymphocytes 10 Synovial Monocytes 10 Synovial Histocytes No Result Required. Synovial Plasma Cells No Result Required. Synovial LE Cells No Result Required. Synovial Macrophages 10 Synovial Other Cells No Result Required. Synovial Diff Comment No Result Required. 02/09/19 02/09/19 06:10 06:10 WBC RBC Hgb Hct MCV MCH MCHC RDW Plt Count MPV Absolute Neuts (auto) Neutrophils % Lymphocytes % Monocytes % Eosinophils % Basophils % Nucleated RBC % Sodium 140 Potassium 4.1 Chloride 108 H Carbon Dioxide 24 Anion Gap 8 BUN 10.1 Creatinine 0.6 Est GFR (CKD-EPI)AfAm 142.76 Est GFR (CKD-EPI)NonAf 123.17 Random Glucose 78 Calcium 8.4 L Total Bilirubin 0.3 AST 11 L ALT 16 Alkaline Phosphatase 68 C-Reactive Protein 6.1 H Total Protein 7.0 Albumin 3.2 L Synovial Source Synovial WBC Synovial RBC Synovial Neutrophils Synovial Lymphocytes Synovial Monocytes Synovial Histocytes Synovial Plasma Cells Synovial LE Cells Synovial Macrophages Synovial Other Cells Synovial Diff Comment HOSPITAL COURSE: Date of Admission:02/08/19 This is a 28 y/o F w no PMH who was admitted for prepatellar bursitis. She had imaging (XR) of her left knee along with IR drainage of the knee found to show thousands of rbc's most likely 2/2 to trauma. She was d/c with a cane on motrin 600TID PRN for pain and cold compresses. She is to f/u with ortho (Dr. Lazo) in 1 week and to have PT as an o/p. Date of Discharge: 02/09/19 Minutes to complete discharge: 35 Discharge Summary Reason For Visit: EFFUSION OF LEFT KNEE, INFECTION OF LEFT KNEE Condition: Stable - Instructions Diet, Activity, Other Instructions: You were admitted for having pain and swelling in your knee. While you were here you were seen by an orthopedic surgeon, Dr. Lazo, and after reviewing the imaging of your right leg (XR, US) you were found to have inflammation in your knee (prepatellar bursitis). No acute intervention was needed during your hospital visit. You are to follow up with Dr. Lazo in the office in 1 week so he can evaluate you. Medication to take for your knee: Motrin 600mg every 8 hrs with food as needed for pain. Apply cold compresses to your knee. Follow Up: You should follow up with primary care physician in 2 weeks. Please follow up with your orthopedic surgeon, Dr. Lazo within 1 week. If you experience any fevers, chills, abdominal pain, numbness and tingling in your leg or knee return to the emergency room. Referrals: Jesse Lazo MD [Staff Physician] - 1 Week Disposition: HOME - Home Medications Comprehensive Discharge Medication List: Ambulatory Orders Ondansetron [Zofran -] 4 mg PO TID PRN #21 tablet 11/29/15 Oxycodone HCl/Acetaminophen [Percocet 5-325 mg Tablet] 1 tab PO Q6H PRN #16 tablet MDD 4 tabs 11/29/15 Norethindrone 1 tab PO DAILY 02/08/19 Ibuprofen [Motrin -] 600 mg PO TID #21 tablet 02/09/19 This patient is new to me today: No Emergency Visit: Yes ED Registration Date: 02/08/19 Care time: The patient presented to the Emergency Department on the above date and was hospitalized for further evaluation of their emergent condition. Critical Care patient: No - Discharge Referral Referred to [facility] Med P.C.: No ATTENDING PHYSICIAN STATEMENT I saw and evaluated the patient. I reviewed the resident's note and discussed the case with the resident. I agree with the resident's findings and plan as documented. SUBJECTIVE: OBJECTIVE: ASSESSMENT AND PLAN:
== END 2019-02-09 16:04 | disposition home or self-care (01) | DRG 351 ==
LOC: JER 22:59 → JERBED 02-08 04:38 → J5S 02-08 06:57
PROVIDERS: ADMIT Internal Medicine; ATTEND Internal Medicine
PROC: 0S9D3ZX Drainage of Left Knee Joint, Percutaneous Approach, Diagnostic (ICD-10-PCS; principal; 2019-02-08)
DX: M70.42 Prepatellar bursitis, left knee (principal); M25.462 Effusion, left knee
CPT/HCPCS: 36415; 73562-TC-LT-FY; 76882-TC-RT-FY; 80053; 81003; 82945; 84157; 84560; 85025; 85610; 85651; 85730; 86038; 86140; 86431; 87040; 87070; 87075; 87086; 87205; 87476; 87491; 87591; 89051; 89060; 97116-GP; 97161-GP; 99285-25

== ENCOUNTER 2019-08-09 09:33 | Emergency (ER) | payer OTHER ==
--- NOTE | 2019-08-09 10:02 | PDOC ---
History of Present Illness - General Chief Complaint: Cold Symptoms Stated Complaint: R/O FLU,4 MONTHS Time Seen by Provider: 08/09/19 10:00 History Source: Patient Exam Limitations: No Limitations - History of Present Illness Initial Comments: 08/09/19 10:01 Jamel Kimbrough is a 28F @4 months presenting with 2 days of fever, cough, myalgias. Patient reports that 2 days ago she had a sudden onset of fevers, chills, non- productive coughing fits, and whole-body aches that has worsened over the last 2 days, prompting her to call for an ambulance. Denies sick contacts, but has 10 year old twins and 8 year old at home. Has tried to take Tylenol but pain has not improved. Poor PO intake, nausea, vomiting, no diarrhea. Complains of aches in her whole upper back and arms/legs. Sees OBGYN at [facility] in [place], last appt last month, has monthly appts, normal without complications. Denies vaginal bleeding/discharge. Has had 2x c-sections for prior pregnancies. Says baby has been moving less and this worries her. No allergies. No other PMH. No medications taken. Denies drugs/alcohol/tobacco. Past History - Past Medical History Allergies/Adverse Reactions: Allergies Allergy/AdvReac Type Severity Reaction Status Date / Time No Known Allergies Allergy Verified 08/09/19 10:16 Home Medications: Ambulatory Orders Ondansetron [Zofran -] 4 mg PO TID PRN #21 tablet 11/29/15 Oxycodone HCl/Acetaminophen [Percocet 5-325 mg Tablet] 1 tab PO Q6H PRN #16 tablet MDD 4 tabs 11/29/15 Norethindrone 1 tab PO DAILY 02/08/19 Ibuprofen [Motrin -] 600 mg PO TID #21 tablet 02/09/19 Oseltamivir Phosphate [Tamiflu -] 75 mg PO BID 5 Days #10 capsule 08/09/19 COPD: No - Psycho Social/Smoking Cessation Hx Smoking History: Never smoked Hx Alcohol Use: No Drug/Substance Use Hx: No Substance Use Type: None Hx Substance Use Treatment: No Review of Systems - Review of Systems Able to Perform ROS?: Yes Constitutional: Yes: Chills, Fever, Weakness HEENTM: No: Eye Pain, Blurred Vision, Nose Pain, Throat Pain, Difficulty Swallowing, Mouth Swelling Respiratory: Yes: Cough. No: Shortness of Breath, SOB with Exertion, SOB at Rest, Productive cough Cardiac (ROS): No: Chest Pain, Irregular Heart Rate, Lightheadedness, Palpitations, Syncope, Chest Tightness ABD/GI: Yes: Nausea, Poor Appetite, Poor Fluid Intake, Vomiting. No: Constipated, Diarrhea : No: Burning, Dysuria, Discharge, Frequency, Flank Pain, Hematuria, Incontinence, Pain, Urgency Musculoskeletal: Yes: Back Pain, Muscle Weakness Integumentary: No: Symptoms Reported Neurological: No: Headache, Numbness, Paresthesia, Unsteady Gait, Ataxia, Dizziness Endocrine: No: Symptoms Reported Hematologic/Lymphatic: No: Symptoms Reported All Other Systems: Reviewed and Negative *Physical Exam - Physical Exam General Appearance: Yes: Nourished, Appropriately Dressed. No: Apparent Distress, Mild Distress HEENT: positive: EOMI, KAUSHIK, Normal ENT Inspection, Normal Voice, Symmetrical, Pharynx Normal, Hearing Grossly Normal. negative: Scleral Icterus (R), Scleral Icterus (L), Pharyngeal Erythema, Tonsillar Exudate, Tonsillar Erythema Neck: positive: Trachea midline, Normal Thyroid, Supple. negative: Tender, Rigid, Lymphadenopathy (R), Lymphadenopathy (L), Tender lateral, Tender midline Respiratory/Chest: positive: Lungs Clear, Normal Breath Sounds. negative: Chest Tender, Respiratory Distress, Accessory Muscle Use, Crackles, Rales, Rhonchi, Stridor, Wheezing Cardiovascular: positive: Regular Rhythm, Regular Rate. negative: Murmur Gastrointestinal/Abdominal: positive: Normal Bowel Sounds, Flat, Soft, Other ( abdomen soft, non-tender, fundal height not palpable above umbilicus consistent with <20wk gestation). negative: Tender, Organomegaly, Pulsatile Mass, Distended, Guarding, Rebound, Hernia Musculoskeletal: positive: Normal Inspection. negative: CVA Tenderness, Decreased Range of Motion Extremity: positive: Normal Capillary Refill, Normal Inspection, Normal Range of Motion, Pelvis Stable. negative: Tender, Coldness, Cyanosis Integumentary: positive: Normal Color, Dry, Warm Neurologic: positive: Fully Oriented, Alert, Normal Mood/Affect, Normal Response Medical Decision Making - Medical Decision Making 08/09/19 15:22 Patient is a 28F at ~4 months presenting with flu-like symptoms, fever , chills, N/V, whole-body myalgias. Presentation highly consistent with URI i.e. influenza. Given status, will test for flu, start on Tamiflu, and give 1L IVF and Ofirmev for symptom control. Bedside US shows good movement and FHR 162, baby is doing well. Labs notable for Flu A positive. Discharging home with Tamiflu and OBGYN f/u. Patient <20 weeks, no need for eval by L&D. Discharge - Discharge Information Problems reviewed: Yes Clinical Impression/Diagnosis: Influenza A Condition: Stable Disposition: HOME - Admission No - Additional Discharge Information Prescriptions: Oseltamivir Phosphate [Tamiflu -] 75 mg PO BID 5 Days #10 capsule - Follow up/Referral Referrals: Mary Grace Deal MD [Primary Care Provider] - - Patient Discharge Instructions Patient Printed Discharge Instructions: DI for Influenza -- Adult Additional Instructions: Today you were evaluated for fevers, chills, and body aches. You have been diagnosed with the flu. We have checked your baby and their heart rate is good and moving well. You need to stay home, rest, and drink lots of soups and sports drinks to stay hydrated as your body fights the infection. We are sending you home with a prescription for Tamiflu to help you recover. If you have a fever, please remember you cannot take Motrin or Aleve, and you should only take Tylenol when you are . Please be mindful of your children, as they may also get the flu or may already have it. If you get sick, please keep them home from school. please follow-up with your regular OBGYN in the next week for further care. If you experience worsening fevers, vomiting, diarrhea, abdominal pain, or have any other new or concerning symptoms, please return to the emergency room. - Post Discharge Activity
[2019-08-09] MEDS ORDERED: ACETAMINOPHEN 1000 MG/100 ML VIAL (NON FORMULARY) IVPB ONE (10:17)
[2019-08-09] MEDS ORDERED: SODIUM CHLORIDE 0.9% 500 ML INFUS.BAG IV ONE (10:25)
[2019-08-09] MEDS ORDERED: OSELTAMIVIR PHOSPHATE 75 MG CAPSULE PO ONE (10:26)
[2019-08-09] MEDS ORDERED: ACETAMINOPHEN INJECTION 100 ML IVPB ONE (10:32)
[2019-08-09] MEDS ORDERED: OSELTAMIVIR PHOSPHATE 75 MG CAPSULE ONE (10:42)
[2019-08-09 11:23] VITALS: BP 109/56; PULSE 121; TEMP 99.6; BMI 26.9
--- NOTE | 2019-08-09 13:00 | PDOC ---
Documentation entered by Dimitrios Evans SCRIBE, acting as scribe for Malcolm Bhatt MD. Malcolm Bhatt MD: This documentation has been prepared by the Nathan barker Nirvannie, SCRIBE, under my direction and personally reviewed by me in its entirety. I confirm that the documentation accurately reflects all work, treatment, procedures, and medical decision making performed by me. Attending Attestation - Resident Resident Name: FadyjonahZoltan - ED Attending Attestation I have performed the following: I have examined & evaluated the patient, The case was reviewed & discussed with the resident, I agree w/resident's findings & plan, Exceptions are as noted - HPI HPI: 08/09/19 10:30 CC: Cold-like symptoms. HPI: The patient is a 28 year old 4 months female , with no significant past medical history, who presents to the emergency department with 2 days cough , fevers, diffuse body aches, and rhinorrhea. She denies recent chest pain or shortness of breath. Allergies: NKDA Primary Care Physician: Dr. Lluvia Deal - Physicial Exam PE: 08/09/19 16:33 Vitals: Triage Vital signs reviewed General Appearance: Nasal congestion flulike appearance Cardiac: Regular rate and rhythym, no murmurs, no rubs, no gallops, Lungs: Clear to auscultation bilateral, good air movement bilaterally, Abdomen: Soft, non distended, normal bowel sounds, non tender to palpation Extremities: Full range of motion to all extremities, no cyanosis, clubbing, or edema Skin: Warm and dry, no rashes or lesions, no rash, no petechiae Psych: Normal mood, normal affect - Medical Decision Making 08/09/19 16:33 Flu positive given will treat with Tamiflu Findings, need for follow-up and strict return instructions discussed with patient.
== END 2019-08-09 13:14 | disposition home or self-care (01) ==
LOC: JER 09:33
PROC: 3E033NZ Introduction of Analgesics, Hypnotics, Sedatives into Peripheral Vein, Percutaneous Approach (ICD-10-PCS; principal; 2019-08-09)
DX: J09.X2 Influenza due to identified novel influenza A virus with other respiratory manifestations (principal)
CPT/HCPCS: 87804; 96374; 99282-25; J0131

== ENCOUNTER 2019-12-26 23:20 | Inpatient (IN) | payer OTHER ==
[2019-12-27] MEDS ORDERED: ELECTROLYTE-148 SOLN 500 ML IV ONE (00:30)
[2019-12-27] MEDS ORDERED: ELECTROLYTE-148 SOLN 1,000 ML IV SCH ×2 (01:30→08:15)
[2019-12-27 01:46] VITALS: BMI 28.9
[2019-12-27] MEDS ORDERED: BUTORPHANOL TARTRATE 1 MG/ML VIAL ONE ×2 (01:48)
[2019-12-27] MEDS ORDERED: PROMETHAZINE HCL 25 MG/1 ML VIAL ONE (01:49)
[2019-12-27] MEDS ORDERED: PROMETHAZINE HCL 25 MG/1 ML VIAL IVPB ONE (01:50)
[2019-12-27] MEDS ORDERED: BUTORPHANOL TARTRATE 1 MG/ML VIAL IVPB ONE (01:50)
[2019-12-27] MEDS ORDERED: CITRIC ACID/SODIUM CITRATE 30 ML UNIT-DOSE CUP PO ONE (06:00)
[2019-12-27] MEDS ORDERED: OXYTOCIN 20 UNITS in 0.9% NS 40 UNIT/2,000 ML INFUS.BAG IV ONE (07:43)
[2019-12-27] MEDS ORDERED: ceFAZolin SODIUM 1 GM VIAL ONE (07:44)
[2019-12-27] MEDS ORDERED: DEXAMETHASONE SOD PHOSPHATE 4 MG/1 ML VIAL ONE (07:44)
[2019-12-27] MEDS ORDERED: morphine SULFATE/PF 0.5 MG/ML (2cc Syringe - QUVA) ONE (07:44)
[2019-12-27] MEDS ORDERED: PHENYLEPHRINE HCL 10 MG/1 ML SINGLE DOSE VIAL ONE (07:45)
--- NOTE | 2019-12-27 08:16 | HP ---
Past Medical History - Admission Chief Complaint: Labor pain History of Present Illness: 29 yo @ 39 weeks gestation, EDC 12/20/19, is pre op for repeat . Surgery was scheduled and patient came c/o labor pain. History Source: Patient Limitations to Obtaining History: No Limitations - Past Medical History ...: 3 ...Para: 2 ...Term: 2 ...: 0 ...Spon : 0 ...Induced : 0 ...Living Children: 2 ...Multiple Gestation: 0 ...EDC by Marcoo: 01/04/20 - Past Surgical History Past Surgical History: Yes: Hx Myomectomy: No Hx Transabdominal Cerclage: No - Smoking History Smoking history: Never smoked Have you smoked in the past 12 months: No - Alcohol/Substance Use Hx Alcohol Use: No - Social History Usual Living Arrangement: Yes: With Spouse Do you think of yourself as: Straight/Heterosexual History of Recent Travel: No Home Medications - Allergies Allergies/Adverse Reactions: Allergies Allergy/AdvReac Type Severity Reaction Status Date / Time No Known Allergies Allergy Verified 12/27/19 02:12 - Home Medications Home Medications: Ambulatory Orders Ondansetron [Zofran -] 4 mg PO TID PRN #21 tablet 11/29/15 Oxycodone HCl/Acetaminophen [Percocet 5-325 mg Tablet] 1 tab PO Q6H PRN #16 tablet MDD 4 tabs 11/29/15 Norethindrone 1 tab PO DAILY 02/08/19 Ibuprofen [Motrin -] 600 mg PO TID #21 tablet 02/09/19 Oseltamivir Phosphate [Tamiflu -] 75 mg PO BID 5 Days #10 capsule 08/09/19 Family Medical History Family History: Unremarkable Review of Systems - Review of Systems Constitutional: reports: No Symptoms Eyes: reports: No Symptoms HENT: reports: No Symptoms Neck: reports: No Symptoms Gastrointestinal: reports: No Symptoms Genitourinary: reports: Pain Breasts: reports: No Symptoms Reported Integumentary: reports: No Symptoms Neurological: reports: No Symptoms Endocrine: reports: No Symptoms Hematology/Lymphatic: reports: No Symptoms Psychiatric: reports: No Symptoms Pain Intensity: 6 Physical Exam - Maternity Vital Signs: Vital Signs Temperature 98.7 F 12/27/19 07:30 Pulse Rate 91 H 06/26/20 07:30 Respiratory Rate 202 H 12/27/19 07:30 Blood Pressure 126/72 12/27/19 07:30 O2 Sat by Pulse Oximetry (%) Constitutional: Yes: No Distress Eyes: Yes: Conjunctiva Clear HENT: Yes: Atraumatic Neck: Yes: Supple Cardiovascular: Yes: Regular Rate and Rhythm Lungs: Clear to auscultation - Vaginal Exam/OB Vaginal Bleeding: No Dilatation (cm): 1 Effacement (%): 60 Presentation: Vertex/Position Station: -3 - Physical Exam ...Motor Strength: WNL Psychiatric: Yes: Alert, Oriented Problem List - Problems (1) Previous section complicating , antepartum condition or complication Problems reviewed: Yes Code(s): O34.219 - MATERNAL CARE FOR UNSP TYPE SCAR FROM PREVIOUS DEL (2) 39 weeks gestation of Problems reviewed: Yes Code(s): Z3A.39 - 39 WEEKS GESTATION OF Assessment/Plan 39 weeks gestation Previous in labor Admit for repeat
[2019-12-27] MEDS ORDERED: MIDAZOLAM HCL 2 MG/2 ML SINGLE DOSE VIAL ONE (08:32)
[2019-12-27] MEDS ORDERED: ONDANSETRON 4 MG/2 ML VIAL IVPUSH PRN (09:34)
[2019-12-27] MEDS ORDERED: IBUPROFEN 800 MG/8 ML IJ IVPB PRN (09:48)
[2019-12-27] MEDS ORDERED: METHYLERGONOVINE MALEATE 0.2 MG/1 ML AMP IM PRN (09:48)
--- NOTE | 2019-12-27 09:52 | OP ---
Operative Note - Note: Operative Date: 12/27/19 Pre-Operative Diagnosis: Previous in labor / Multiparity Operation: Repeat Low Transverse / Bilateral tubal ligation Findings: Baby boy in cephalic position Surgeon: Kenya Da Silva Manager Clinical Services: Dante Morejon Anesthesia: Spinal Specimens Removed: Placenta / Portion of fallopian tubes Estimated Blood Loss (mls): 600
[2019-12-27] MEDS ORDERED: OXYTOCIN 20 UNITS in 0.9% NS 20 UNIT/1,000 ML INFUS.BAG IV SCH ×2 (10:00→10:15)
[2019-12-27] MEDS ORDERED: ACETAMINOPHEN INJECTION 100 ML IVPB ONE (10:34)
[2019-12-27] MEDS ORDERED: ACETAMINOPHEN 1000 MG/100 ML VIAL (NON FORMULARY) IVPB ONE (11:00)
[2019-12-27] MEDS: PRENATAL VITAMINS W/ FOLIC ACID TABLET (FP) PO SCH (11:22)
[2019-12-27] MEDS: FERROUS SO4 325 MG TABLET (FP) PO SCH (18:54)
[2019-12-28] MEDS: IBUPROFEN 600 MG TABLET (FP) PO PRN ×6 (00:47→23:48)
[2019-12-28] MEDS: SIMETHICONE 80 MG TAB.CHEW (FP) PO PRN ×6 (00:47→23:47)
[2019-12-28] MEDS: oxyCODONE HCL 5 MG TABLET PO PRN ×6 (00:47→23:48)
[2019-12-28 08:20] LABS: BASO % 0.2 % (0-2.0); EOS % 0.7 % (0-4.5); HEMATOCRIT 38.6 % (32.4-45.2); HEMOGLOBIN 12.8 GM/dL (10.7-15.3); LYMPH % 15.7 % (8-40); MEAN CELL VOLUME 84.7 fl (80-96); MEAN PLT VOLUME 9.8 fl (7.5-11.1); MONO % 5.4 % (3.8-10.2); PLATELET COUNT 127 K/MM3 (134-434); RBC 4.56 M/mm3 (3.60-5.2); WHITE BLOOD COUNT 12.8 K/mm3 (4.0-10.0)
[2019-12-28] MEDS: FERROUS SO4 325 MG TABLET (FP) PO SCH ×2 (09:00→18:03)
[2019-12-28] MEDS: PRENATAL VITAMINS W/ FOLIC ACID TABLET (FP) PO SCH (09:03)
[2019-12-28] MEDS ORDERED: BISACODYL 10 MG SUPP.RECT RC PRN (09:48)
--- NOTE | 2019-12-28 14:50 | PN ---
Progress Note (short form) - Note Progress Note: 29F POD#1 for under spinal anesthesia. Pt. doing well this afternoon. Ambulating without difficulty. VSS. Continue with current management per primary team.
--- NOTE | 2019-12-28 22:07 | PN ---
Post Progress Note - Subjective Subjective: 29 yo Para 3 status post repeat , seen and evaluated. She's lying comfortably in bed. Post Day: 1 Type of Delivery: Repeat C/S Vital Signs: Vital Signs Temperature 98.4 F 12/28/19 08:02 Pulse Rate 79 12/28/19 08:02 Respiratory Rate 18 12/28/19 08:02 Blood Pressure 113/80 12/28/19 08:02 O2 Sat by Pulse Oximetry (%) Breast Exam: Yes: Soft Uterus: Yes: Fundus @ umbilicus Incision: Yes: Dressing dry and intact Abdomen/GI: Yes: Abdomen soft, Tolerating PO Lochia: Yes: Rubra Lochia, amount: Small Extremities: Yes: Calves non-tender Activity: Ambulating - Labs Labs: CBC WBC 12.8 K/mm3 (4.0-10.0) H 12/28/19 07:40 RBC 4.56 M/mm3 (3.60-5.2) 12/28/19 07:40 Hgb 12.8 GM/dL (10.7-15.3) 12/28/19 07:40 Hct 38.6 % (32.4-45.2) 12/28/19 07:40 MCV 84.7 fl (80-96) 12/28/19 07:40 MCH 28.0 pg (25.7-33.7) 12/28/19 07:40 MCHC 33.0 g/dl (32.0-36.0) 12/28/19 07:40 RDW 16.0 % (11.6-15.6) H 12/28/19 07:40 Plt Count 127 K/MM3 (134-434) L 12/28/19 07:40 MPV 9.8 fl (7.5-11.1) 12/28/19 07:40 Absolute Neuts (auto) 10.0 K/mm3 (1.5-8.0) H 12/28/19 07:40 Neutrophils % 78.0 % (42.8-82.8) 12/28/19 07:40 Lymphocytes % 15.7 % (8-40) 12/28/19 07:40 Monocytes % 5.4 % (3.8-10.2) 12/28/19 07:40 Eosinophils % 0.7 % (0-4.5) 12/28/19 07:40 Basophils % 0.2 % (0-2.0) 12/28/19 07:40 Nucleated RBC % 0 % (0-0) 12/28/19 07:40 Problem List - Problems (1) Previous section complicating , antepartum condition or complication Problems reviewed: Yes Code(s): O34.219 - MATERNAL CARE FOR UNSP TYPE SCAR FROM PREVIOUS DEL (2) 39 weeks gestation of Problems reviewed: Yes Code(s): Z3A.39 - 39 WEEKS GESTATION OF (3) Status post repeat low transverse section Problems reviewed: Yes Code(s): Z98.891 - HISTORY OF UTERINE SCAR FROM PREVIOUS SURGERY Assessment/Plan Status post repeat Low Transverse Ambulation Analgesia as needed Continue routine post op care
[2019-12-29 00:10] VITALS: PULSE 88
--- NOTE | 2019-12-29 02:02 | OP ---
DATE OF OPERATION: 12/27/2019 PREOPERATIVE DIAGNOSIS: Previous section, in labor, multiparity. POSTOPERATIVE DIAGNOSIS: Previous section, in labor, multiparity. PROCEDURE: Repeat low transverse section and bilateral tubal ligation. SURGEON: Kenya Da Silva MD ASSISANT: ROBE Archer ANESTHESIA: Spinal. COMPLICATIONS: None. ESTIMATED BLOOD LOSS: 600 mL. DESCRIPTION OF PROCEDURE: Patient was taken to the operating room where spinal anesthesia was administered. Patient was then prepped and draped in the appropriate sterile fashion. A Pfannenstiel skin incision was then made and carried out through the underlying layer of fascia. The fascia was incised in the midline and extended laterally. The superior aspect of the fascial incision was then grasped with Mak clamp, elevated, and the rectus muscles were dissected off bluntly. Attention was then turned to the inferior aspect of the fascial incision, which in a similar fashion was then grasped with Mak clamp, elevated, and the rectus muscle dissected off of bluntly. The rectus muscle was then in the midline. The peritoneum identified and entered sharply with Metzenbaum scissors. This incision was extended superiorly and inferiorly with good visualization of the bladder. The vesicouterine peritoneum was then grasped with pickup and entered sharply with Metzenbaum scissors. This incision was extended laterally and the head delivered atraumatically. Nose and mouth were suctioned. The cord was clamped and cut. The infant was handed to the awaiting bid writer. The placenta was removed manually. The uterus exteriorized and cleared of all clots and debris. The uterine incision was repaired using 0 Biosyn in a running locked fashion. A second layer of the same suture was used as a means to provide excellent hemostasis. The right tube was then grasped with Stanton and then a 3-cm segment of the tube was then doubly tied and cut. Cautery was used to cauterize the cut tip of the tube. The same procedure was performed on the left side. The pelvis was then completely irrigated. The uterus was returned to the abdomen. The peritoneum was closed using 2-0 Biosyn. There were no rectus muscles left, so prior to closing the peritoneum, the fascia was reapproximated using 0 Vicryl in a running fashion. The skin was closed in a subcuticular fashion using 3-0 Vicryl. The patient tolerated the procedure well. PATHOLOGY: Portion of fallopian tubes and placenta. KENYA DA SILVA M.D. [id number]
[2019-12-29] MEDS: SIMETHICONE 80 MG TAB.CHEW (FP) PO PRN ×2 (05:25→11:18)
[2019-12-29] MEDS: IBUPROFEN 600 MG TABLET (FP) PO PRN ×2 (05:25→11:18)
[2019-12-29] MEDS: oxyCODONE HCL 5 MG TABLET PO PRN (05:26)
[2019-12-29 08:58] VITALS: BP 119/62; TEMP 97.9
[2019-12-29] MEDS: FERROUS SO4 325 MG TABLET (FP) PO SCH (09:00)
[2019-12-29] MEDS: PRENATAL VITAMINS W/ FOLIC ACID TABLET (FP) PO SCH (09:00)
--- NOTE | 2019-12-29 09:40 | DS ---
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: Vital Signs Temperature 97.9 F 12/29/19 08:46 Pulse Rate 88 12/29/19 08:46 Respiratory Rate 18 12/29/19 08:46 Blood Pressure 119/62 12/29/19 08:46 O2 Sat by Pulse Oximetry (%) Constitutional: Yes: Well Nourished Eyes: Yes: Conjunctiva Clear HENT: Yes: Atraumatic Neck: Yes: Supple Cardiovascular: Yes: Regular Rate and Rhythm Respiratory: Yes: Regular Gastrointestinal: Yes: Normal Bowel Sounds External Genitalia: Yes: Normal Uterus: Yes: Firm Wound/Incision: Yes: Well Approximated, Steri Strips (in place) Neurological: Yes: Alert, Oriented ...Motor Strength: WNL Psychiatric: Yes: Alert, Oriented Labs: CBC, BMP 12/28/19 07:40 Delivery - Delivery Type of Anesthesia: Spinal Episiotomy/Laceration: None EBL (cc): 600 Delivery, Single - Stages of Labor Date 1st Stage Initiatied: 12/26/19 Time 1st Stage Initiated: 22:00 Date of Delivery: 12/27/19 Time of Delivery: 08:28 Time Placenta Delivered: 08:30 - 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 Present: Yes Name: Rogelio Quiroz Gender: Male Weight: 8 lb 1 oz Position: Right, OT Total Hours ROM (Hrs/Mins): 1min - 1 Minute Total Score: 9 5 Minutes Total Score: 9 - Feeding Plan Initial Plan: Elected not to breastfeed exclusively throughout hospitalization Discharge Summary Problems reviewed: Yes Reason For Visit: SCHEDULED C/S IN LABOR Current Active Problems 39 weeks gestation of (Acute) Previous section complicating , antepartum condition or complication (Acute) Status post repeat low transverse section (Acute) Procedures: Principal: Repear Low Tranverse Hospital Course: Routine post op care Health Concerns: None Plan of Treatment: Analgesia Ambulation F/U with MD in one week Goals: Resume regular activities in 4-6 weeks Condition: Good - Instructions Diet, Activity, Other Instructions: Regular diet No driving, no lifting x 4 weeks Referrals: Kenya Da Silva MD [Staff Physician] - - Home Medications Comprehensive Discharge Medication List: Ambulatory Orders Ondansetron [Zofran -] 4 mg PO TID PRN #21 tablet 11/29/15 Oxycodone HCl/Acetaminophen [Percocet 5-325 mg Tablet] 1 tab PO Q6H PRN #16 tablet MDD 4 tabs 11/29/15 Norethindrone 1 tab PO DAILY 02/08/19 Ibuprofen [Motrin -] 600 mg PO TID #21 tablet 02/09/19 Oseltamivir Phosphate [Tamiflu -] 75 mg PO BID 5 Days #10 capsule 08/09/19
--- NOTE | 2020-01-02 17:23 | PATH ---
Surgical Pathology Report Patient Name: KEILA FREIRE [facility]. Rec. 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 Specimen(s) Received A: PLACENTA B: RIGHT FALLOPIAN TUBE C: LEFT FALLOPIAN TUBE Clinical History repeat Final Diagnosis A. PLACENTA: THIRD TRIMESTER PLACENTA. TRIVASCULAR CORD. MEMBRANES WITH NO DIAGNOSTIC ABNORMALITIES. B. RIGHT PORTION OF FALLOPIAN TUBE, RESECTION: COMPLETE CROSS SECTION OF THE FALLOPIAN TUBE LUMEN IDENTIFIED. C. LEFT PORTION OF FALLOPIAN TUBE, RESECTION: COMPLETE CROSS SECTION OF THE FALLOPIAN TUBE LUMEN IDENTIFIED. Electronically Signed Shanta Zayas M.D. Gross Description A. The specimen is received fresh labeled placenta and is a 505 gram, 21.0 x 20.0 x 2.2 cm. placenta with attached membranes and umbilical cord. The attached membranes are cotter, translucent with focal opacities and insert marginally. The umbilical cord measures 38 cm. in length and averages 1.1 cm. in diameter. The cord inserts eccentrically, 3.5 cm. to the nearest margin. No true knots or strictures are identified. Cut surface of the umbilical cord reveals 3 vessels. The surface is holder-blue with minimal fibrin deposition and appropriate caliber vessels. The maternal surface is red-brown with focal defects. Sectioning reveals red-brown, spongy parenchyma. No lesions are identified. [employer] sections are submitted in three cassettes as follows: 1- membrane rolls and umbilical cord; 2-3- full thickness sections of placenta. B. Received in formalin labeled "right portion of fallopian tube," is a 1.4 cm in length portion of fallopian tube. No fimbria are present. The outer surface is cotter-mensah and smooth. Sectioning reveals an unremarkable lumen. [employer] sections are submitted in one cassette. C. Received in formalin labeled "left portion of fallopian tube," is a 1.6 cm in length portion of fallopian tube. No fimbria are present. The outer surface is cotter-mensah and smooth. Sectioning reveals an unremarkable lumen. [employer] sections are submitted in one cassette. DL/12/31/2019 saudi/12/31/2019
== END 2019-12-29 11:40 | disposition home or self-care (01) | DRG 540 ==
LOC: JLDR 23:20 → J3N 12-27 10:51 → J3W 12-28 13:04
PROVIDERS: ADMIT Obstetrics & Gynecology; ATTEND Obstetrics & Gynecology
PROC: 10D00Z1 Extraction of Products of Conception, Low, Open Approach (ICD-10-PCS; principal; 2019-12-27)
PROC: 0UB70ZZ Excision of Bilateral Fallopian Tubes, Open Approach (ICD-10-PCS; 2019-12-27)
DX: O34.211 Maternal care for low transverse scar from previous cesarean delivery (principal); N85.8 Other specified noninflammatory disorders of uterus; Z3A.39 39 weeks gestation of pregnancy; Z30.2 Encounter for sterilization; Z37.0 Single live birth
CPT/HCPCS: 36415; 85025; 86850; 86900; 86901; 88302-TC; 88307-TC; J0131

== ENCOUNTER 2023-04-16 14:32 | Emergency (ER) | payer OTHER ==
[2023-04-16 14:37] VITALS: BP 119/72; PULSE 68; RESP 20; TEMP 97.7; BMI 24.4
[2023-04-16] MEDS ORDERED: ACETAMINOPHEN 1000 MG/100 ML BAG IVPB ONE (15:43)
[2023-04-16] MEDS ORDERED: SODIUM CHLORIDE 0.9% 500 ML INFUS.BAG IV ONE (15:46)
[2023-04-16] MEDS ORDERED: ACETAMINOPHEN INJECTION 100 ML IVPB ONE (15:50)
[2023-04-16 16:06] LABS: HEMATOCRIT 38.6 % (32.4-45.2); HEMOGLOBIN 12.6 GM/dL (10.7-15.3); MCH 22.5 pg (25.7-33.7); MCHC 32.6 g/dl (32.0-36.0); MEAN PLT VOLUME 8.9 fl (7.5-11.1); PLATELET COUNT 278 10^3/uL (134-434); RDW 26.9 % (11.6-15.6); WHITE BLOOD COUNT 13.4 K/mm3 (4.0-10.0)
[2023-04-16 16:24] LABS: POTASSIUM 4.3 mmol/L (3.5-5.1)
[2023-04-16 16:27] LABS: ALBUMIN 3.8 g/dl (3.4-5.0); CALCIUM 8.7 mg/dL (8.5-10.1)
[2023-04-16 16:28] LABS: BLOOD UREA NITROGEN 13.1 mg/dL (7-18)
[2023-04-16 16:30] LABS: CREATININE 0.8 mg/dL (0.55-1.3)
[2023-04-16 16:31] LABS: PHOSPHOROUS 4.1 mg/dL (2.5-4.9)
[2023-04-16 16:32] LABS: BILIRUBIN,TOTAL 0.3 mg/dL (0.2-1); TOT PROT 7.6 g/dl (6.4-8.2)
[2023-04-16] MEDS ORDERED: ONDANSETRON 4 MG/2 ML VIAL IVPUSH ONE (16:43)
[2023-04-16] MEDS ORDERED: ONDANSETRON 4 MG/2 ML VIAL ONE ×2 (16:44→16:50)
[2023-04-16 17:27] LABS: EPI CELLS >36 /uL (0-25.1); HYALINE CASTS 4 /uL (0-3.1); PH,URINE 6.5 (5.0-8.0); URINE APPEARANCE CLOUDY; URINE BACTERIA 2520 /uL (0-1359); URINE BILIRUBIN NEGATIVE (NEGATIVE); URINE COLOR YELLOW; URINE GLUCOSE (UA) NEGATIVE (NEGATIVE); URINE KETONE 2+ (NEGATIVE); URINE LEUK ESTERASE NEGATIVE (NEGATIVE); URINE NITRITE NEGATIVE (NEGATIVE); URINE PROTEIN NEGATIVE (NEGATIVE); URINE RBC 96 /uL (0-23.9)
[2023-04-16 17:38] LABS: ANISOCYTOSIS 3+
[2023-04-16 19:39] LABS: URINE WBC 75.1 /uL (0-25.8)
[2023-04-16] MEDS ORDERED: KETOROLAC TROMETHAMINE 15 MG/ML VIAL IVPUSH ONE (19:43)
[2023-04-16] MEDS ORDERED: TAMSULOSIN HCL 0.4 MG CAP PO ONE (19:53)
[2023-04-16] MEDS ORDERED: PIPERACILLIN/TAZOB 4.5 GM 4.5 GM in DEXTROSE 5%-WATER 100 ML IVPB ONE (19:55)
[2023-04-16] MEDS ORDERED: TAMSULOSIN HCL 0.4 MG CAP ONE (20:46)
[2023-04-16] MEDS ORDERED: KETOROLAC TROMETHAMINE 15 MG/ML VIAL ONE (20:46)
== END 2023-04-16 20:57 | disposition home or self-care (01) ==
LOC: JER 14:32
PROC: 3E033NZ Introduction of Analgesics, Hypnotics, Sedatives into Peripheral Vein, Percutaneous Approach (ICD-10-PCS; principal; 2023-04-16)
PROC: 3E0333Z Introduction of Anti-inflammatory into Peripheral Vein, Percutaneous Approach (ICD-10-PCS; 2023-04-16)
PROC: 3E033GC Introduction of Other Therapeutic Substance into Peripheral Vein, Percutaneous Approach (ICD-10-PCS; 2023-04-16)
DX: R10.13 Epigastric pain (principal); R11.10 Vomiting, unspecified; R51.9 Headache, unspecified; N20.0 Calculus of kidney
CPT/HCPCS: 36415; 74177-TC; 80053; 81003; 83690; 83735; 84100; 84703; 85025; 87086; 99285-25

== ENCOUNTER 2024-05-06 17:23 | Day surgery (SDC) | payer OTHER ==
[2024-05-06] MEDS ORDERED: MAG HYDROX/AL HYDROX/SIMETH 30 ML UNIT-DOSE CUP ONE (18:44)
[2024-05-06] MEDS ORDERED: FAMOTIDINE 20 MG TABLET ONE (18:44)
[2024-05-06] MEDS: FAMOTIDINE 20 MG TABLET PO ONE (18:46)
[2024-05-06] MEDS: MAG HYDROX/AL HYDROX/SIMETH 30 ML UNIT-DOSE CUP PO ONE (18:46)
[2024-05-06] MEDS ORDERED: ONDANSETRON *ODT* 4 MG TABLET ONE (20:09)
[2024-05-06] MEDS: ONDANSETRON *ODT* 4 MG TABLET SL ONE (20:11)
[2024-05-06 20:13] LABS: BASO % 0.2 % (0-2.0); EOS % 1.5 % (0-4.5); HEMATOCRIT 39.1 % (32.4-45.2); HEMOGLOBIN 12.9 GM/dL (10.7-15.3); LYMPH % 9.1 % (8-40); MCH 24.1 pg (25.7-33.7); MCHC 32.9 g/dl (32.0-36.0); MEAN CELL VOLUME 73.3 fl (80-96); MEAN PLT VOLUME 8.6 fl (7.5-11.1); NEUT % 85.2 % (42.8-82.8); PLATELET COUNT 241 10^3/uL (134-434); RBC 5.34 M/mm3 (3.60-5.2); RDW 17.3 % (11.6-15.6)
[2024-05-06 20:44] LABS: POTASSIUM 4.3 mmol/L (3.5-5.1)
[2024-05-06 20:45] LABS: BLOOD UREA NITROGEN 12.1 mg/dL (7-18)
[2024-05-06 20:46] LABS: ALBUMIN 3.9 g/dl (3.4-5.0); MAGNESIUM 2.2 mg/dL (1.8-2.4)
[2024-05-06 20:49] LABS: CREATININE 0.7 mg/dL (0.55-1.3)
[2024-05-06 20:51] LABS: BILIRUBIN,TOTAL 0.4 mg/dL (0.2-1); TOT PROT 7.8 g/dl (6.4-8.2)
[2024-05-06] MEDS: ACETAMINOPHEN 1000 MG/100 ML BAG IVPB ONE (20:51)
[2024-05-07] MEDS ORDERED: ONDANSETRON *ODT* 4 MG TABLET SL PRN (01:02)
[2024-05-07] MEDS ORDERED: IBUPROFEN 400 MG TABLET (FP) PO PRN ×2 (01:03→17:18)
[2024-05-07 01:31] LABS: URINE APPEARANCE CLEAR; URINE BILIRUBIN NEGATIVE (NEGATIVE); URINE COLOR YELLOW; URINE GLUCOSE (UA) NEGATIVE (NEGATIVE); URINE KETONE TRACE (NEGATIVE); URINE LEUK ESTERASE NEGATIVE (NEGATIVE); URINE NITRITE NEGATIVE (NEGATIVE); URINE PROTEIN NEGATIVE (NEGATIVE)
[2024-05-07 03:24] VITALS: BMI 22.8
[2024-05-07] MEDS: SODIUM CHLORIDE 1,000 ML IV SCH (04:00)
[2024-05-07 08:31] LABS: HEMATOCRIT 34.6 % (32.4-45.2); HEMOGLOBIN 11.3 GM/dL (10.7-15.3); MCH 24.2 pg (25.7-33.7); MCHC 32.6 g/dl (32.0-36.0); MEAN CELL VOLUME 74.2 fl (80-96); MEAN PLT VOLUME 8.9 fl (7.5-11.1); PLATELET COUNT 200 10^3/uL (134-434); RBC 4.66 M/mm3 (3.60-5.2); RDW 16.8 % (11.6-15.6); WHITE BLOOD COUNT 8.4 K/mm3 (4.0-10.0)
[2024-05-07 09:02] LABS: BLOOD UREA NITROGEN 9.7 mg/dL (7-18); CALCIUM 8.5 mg/dL (8.5-10.1)
[2024-05-07 09:04] LABS: ALBUMIN 3.4 g/dl (3.4-5.0); MAGNESIUM 2.3 mg/dL (1.8-2.4)
[2024-05-07 09:06] LABS: CREATININE 0.6 mg/dL (0.55-1.3); PHOSPHOROUS 3.5 mg/dL (2.5-4.9)
[2024-05-07 09:07] LABS: BILIRUBIN,TOTAL 0.4 mg/dL (0.2-1); TOT PROT 6.7 g/dl (6.4-8.2)
[2024-05-07] MEDS ORDERED: PANTOPRAZOLE SODIUM 40 MG in SODIUM CHLORIDE 100 ML IVPB SCH (10:00)
[2024-05-07] MEDS: PANTOPRAZOLE SODIUM 40 MG VIAL IVPUSH SCH (10:01)
[2024-05-07] MEDS: ENOXAPARIN NA (PORCINE) 40 MG/0.4 ML DISP.SYRIN SQ SCH (10:01)
[2024-05-07] MEDS ORDERED: LIDOCAINE HCL 1%, 10 MG/ML (20ML VIAL) ONE (14:38)
[2024-05-07] MEDS ORDERED: cefOXitin SODIUM 2 GM VIAL (RESTRICTED TO ID) IVPB ONE (15:39)
[2024-05-07] MEDS ORDERED: LACTATED RINGERS SOLUTION 1,000 ML IV SCH (17:00)
[2024-05-07] MEDS ORDERED: oxyCODONE HCL 5 MG TABLET PO PRN (17:18)
[2024-05-07] MEDS: ACETAMINOPHEN 1000 MG/100 ML BAG IVPB SCH (17:31)
[2024-05-07] MEDS: LACTATED RINGERS SOLUTION 1,000 ML IV SCH (19:42)
[2024-05-07] MEDS: oxyCODONE HCL 5 MG TABLET PO PRN (23:44)
[2024-05-07] MEDS: ONDANSETRON *ODT* 4 MG TABLET SL PRN (23:48)
[2024-05-08 01:37] VITALS: RESP 16
[2024-05-08] MEDS: ENOXAPARIN NA (PORCINE) 40 MG/0.4 ML DISP.SYRIN SQ SCH (10:07)
[2024-05-08] MEDS: PANTOPRAZOLE SODIUM 40 MG VIAL IVPUSH SCH (10:07)
[2024-05-08 14:30] VITALS: BP 116/69; PULSE 66; TEMP 98.1
[2024-05-08 16:16] LABS: POTASSIUM 3.6 mmol/L (3.5-5.1)
[2024-05-08 16:25] LABS: CALCIUM 8.3 mg/dL (8.5-10.1)
[2024-05-08 16:26] LABS: ALBUMIN 2.9 g/dl (3.4-5.0); BLOOD UREA NITROGEN 6.1 mg/dL (7-18)
[2024-05-08 16:29] LABS: CREATININE 0.6 mg/dL (0.55-1.3)
[2024-05-08 16:31] LABS: BILIRUBIN,TOTAL 0.3 mg/dL (0.2-1); TOT PROT 5.8 g/dl (6.4-8.2)
== END 2024-05-08 16:49 | disposition home or self-care (01) ==
LOC: JER 17:23 → UNDOADMOB 22:33 → JERBED 22:33 → J7W 05-07 01:45 → JASUSAT 05-07 14:41 → J7W 05-07 14:49 → JASUSAT 05-08 16:49
PROVIDERS: ATTEND Nurse Practitioner Family
PROC: 3E033NZ Introduction of Analgesics, Hypnotics, Sedatives into Peripheral Vein, Percutaneous Approach (ICD-10-PCS; principal; 2024-05-06)
DX: N20.0 Calculus of kidney (principal); K80.20 Calculus of gallbladder without cholecystitis without obstruction; R10.13 Epigastric pain; R11.2 Nausea with vomiting, unspecified
CPT/HCPCS: 36415; 76705-TC; 80053; 81003; 83690; 83735; 84100; 84703; 85025; 85027; 87086; 88304-TC; 94760; 99285-25; J0131; Q0162